=== PATIENT | male | born 1960 | race Caucasian/White ===

== ENCOUNTER 2017-06-30 11:56 | Outpatient (CLI) | payer BC ==
[~2017-06-30] VITALS: Ht 165.1 cm; Wt 73.0 kg
[2017-06-30] MEDS ORDERED: ATOR10TA66 PO (13:35)
[2017-06-30] MEDS ORDERED: LISI1TAB8 PO (13:35)
== END 2017-06-30 13:38 ==
LOC: PREOP 11:56
PROVIDERS: ATTEND Surgery
DX: Z01.818 Encounter for other preprocedural examination (principal); Z12.11 Encounter for screening for malignant neoplasm of colon

== ENCOUNTER 2017-07-01 08:41 | Day surgery (SDC) | payer BC ==
[~2017-07-01 08:41] MED LIST: ATOR10TA66 PO; LISI1TAB8 PO
[2017-07-01 08:50] VITALS: BP 143/85
[2017-07-01] MEDS ORDERED: LACTATED RINGERS 1,000 ML IV ONE (08:57)
[2017-07-01] MEDS ORDERED: LACTATED RINGERS 1,000 ML IV STA (09:32)
--- NOTE | 2017-07-01 10:04 | Progress Note-Pre Operative ---
Pre-Operative Progress Note H&P Reviewed The H&P was reviewed, patient examined and no changes noted. Date Seen by Provider: July 01, 2017 Time Seen by Provider: 10:03 Date H&P Reviewed: July 01, 2017 Time H&P Reviewed: 10:04 Pre-Operative Diagnosis: screening colonoscopy AMBROSIO COLÓN DO July 01, 2017 10:04
[2017-07-01] MEDS ORDERED: PROPOFOL INJECTION 50 ML IV ONE (10:37)
[2017-07-01] MEDS ORDERED: MIDAZOLAM 2 MG/2 ML (VERSED) VIAL ONE (10:37)
--- NOTE | 2017-07-01 11:18 | Progress Note-Post Operative ---
Post-Operative Progess Note Surgeon (s)/Supervisor [place] (s) Surgeon AMBROSIO COLÓN DO Supervisor [place]: na Pre-Operative Diagnosis screening colonoscopy Post-Operative Diagnosis rectal polyps Procedure & Operative Findings Date of Procedure 07/01/17 Procedure Performed/Findings colonoscopy c snare polypectomy Anesthesia Type per cro Estimated Blood Loss Estimated blood loss (mL): none Specimens/Packing Specimens Removed rectal polyp AMBROSIO COLÓN DO July 01, 2017 11:18
--- NOTE | 2017-07-01 11:19 | Discharge Inst-Simple/Standard ---
Discharge Inst-Standard Patient Instructions/Follow Up Plan of Care/Instructions/FU: 2 weeks Lay Activity as Tolerated: Yes Discharge Diet: Regular Diet (high fiber) AMBROSIO COLÓN DO July 01, 2017 11:19
[2017-07-01 11:30] VITALS: BP 120/92
--- NOTE | 2017-07-01 11:38 | Anesthesia-General Post-Op ---
MAC Patient Condition Mental Status/LOC: Same as Preop Cardiovascular: Satisfactory Nausea/Vomiting: Absent Respiratory: Satisfactory Pain: Controlled Complications: Absent Post Op Complications Complications None Follow Up Care/Instructions Patient Instructions None needed. Anesthesiology Discharge Order Discharge Order Patient is doing well, no complaints, stable vital signs, no apparent adverse anesthesia problems. No complications reported per nursing. KHADIJAH DEMPSEY CRNA July 01, 2017 11:38
[2017-07-01 11:55] VITALS: BP 120/89
[2017-07-01 12:04] VITALS: BP 120/89
--- NOTE | 2017-07-01 18:23 | OPERATIVE REPORT ---
DATE OF SERVICE: 07/01/2017 PREOPERATIVE DIAGNOSIS: Screening colonoscopy. POSTOPERATIVE DIAGNOSIS: Rectal polyp. SURGEON: Ambrosio Chun DO ANESTHESIA: Per [employer] TOE FORMER. ESTIMATED BLOOD LOSS: None. COMPLICATIONS: None. INDICATIONS: The patient is a 57-year-old male due for screening colonoscopy. He understands risks and benefits of procedure and wishes to proceed with procedure. Consent was signed in the chart. PROCEDURE IN DETAIL: The patient was taken to the endoscopy suite, placed in left lateral recumbent position. Timeout was performed. Digital rectal exam was performed. Decreasing in size left external thrombosed hemorrhoid. No other palpable polyps, masses or ulcerations. Scope was inserted in the rectum and advanced all the way to the cecum with minimal difficulty. Prep was adequate. There were no polyps, masses or ulcerations within the cecum, ascending, transverse, descending and sigmoid colon. Once in the rectum, a small polyp was present. Snare polypectomy was performed. Specimen was obtained for pathology. Scope was attempted to be retroflexed, but the rectum was too narrow. Therefore, multiple insertions and retractions were made noting no other pathology. Scope was slowly retracted back until completely removed. The patient tolerated the procedure well without any complications. He was taken to recovery room in stable condition. RECOMMENDATIONS: The patient will be recommended repeat colonoscopy in 5 years. He will follow up in the office in 2 weeks to discuss pathology results and reexamined the external hemorrhoid. Job ID: [id number] DocumentID: [id number] Dictated Date: 07/01/2017 11:22:06 Core Cleaner Date: 07/01/2017 18:22:34 Dictated By: AMBROSIO CHUN DO
== END 2017-07-01 12:03 | disposition home or self-care (01) ==
LOC: ENDO 08:41
PROVIDERS: ATTEND Surgery
DX: Z12.11 Encounter for screening for malignant neoplasm of colon (principal); K62.1 Rectal polyp; I10 Essential (primary) hypertension; Z79.899 Other long term (current) drug therapy
CPT/HCPCS: 88305